=== PATIENT | male | born 1955 | race Caucasian/White ===

== ENCOUNTER 2016-11-08 23:14 | Emergency (ER) | payer BC ==
--- NOTE | ~2016-11-08 | CT16 ---
[facility] A Service of [facility] RADIOLOGY TEXT RESULTS PATIENT: VIDYA LUCERO LOCATION: [facility] : 51 UNIT #: [id number] AGE: [address]: Michael Manzanares MD SEX: M ORDER DR: [id number] [facility] [address] [place], [place] [address] [id number] E MR#: [id number] Acc #: [id number] NAME: VIDYA LUCERO : 1955 SEX: M STUDY DATE/TIME: 11/09/2016 0:01 UNIT: [facility] ROOM: STUDY DESCRIPTION: CT Angio Chest for PE Attending Physician: Michael Manzanares M.D. Ordering Physician: Michael Manzanares M.D. Primary Care Physician: Juanita Portillo M.D. MEDICAL IMAGING REPORT This report is preliminary unless electronic signature is present EXAM CTA chest with contrast PE protocol, 11/09/2016 HISTORY 61-year-old male with chest pain and shortness of air for 3 days. COMPARISON None TECHNIQUE Helical scan performed through the chest following the timed bolus administration of IV contrast per PE protocol. Coronal 3-D MIP reconstructions. Sagittal reformatted images. This CT exam was performed with one or more of the following radiation dose reduction techniques: automatic exposure control, adjustment of mA and/or kV according to patient size, and iterative reconstruction. FINDINGS There is adequate opacification of the pulmonary arteries with no filling defects noted. Thoracic aorta normal in course and caliber without dissection. Heart size normal. No pericardial effusion. Coronary artery calcifications. There is bibasilar atelectasis/infiltrate as well as minimal ground-glass infiltrate in the right upper lobe and left upper lobe. The findings may represent multifocal pneumonia in the appropriate clinical setting. Followup to resolution recommended. No pleural effusion or pneumothorax. Incidental scanning through the upper abdomen demonstrates multiple left renal cysts. No acute bony abnormality. IMPRESSION [facility] A Service of [facility] RADIOLOGY TEXT RESULTS PATIENT: VIDYA LUCERO LOCATION: [facility] : 51 UNIT #: [id number] AGE: [address]: Michael Manzanares MD SEX: M ORDER DR: 1. Negative for pulmonary emboli. 2. Negative for thoracic aortic aneurysm/dissection. 3. Bibasilar atelectasis/infiltrate with patchy ground-glass infiltrates in the left upper lobe and right upper lobe. The findings may represent multifocal pneumonia in the appropriate clinical setting. Followup to resolution is recommended. Dictated by... Joel Hartman M.D. THIS IS AN ELECTRONICALLY VERIFIED REPORT Joel Hartman M.D. at 11/09/2016 11:27 PM MALINA/taryn TD: 11/09/2016 13:10 JOB #: [id number] MEDICAL IMAGING REPORT Page 1 of 1 COPY
--- NOTE | ~2016-11-08 | CR63 ---
[facility] A Service of [facility] RADIOLOGY TEXT RESULTS PATIENT: VIDYA LUCERO LOCATION: [facility] : 51 UNIT #: [id number] AGE: [address]: Michael Manzanares MD SEX: M ORDER DR: [id number] [facility] [address] [place], [place] [address] [id number] E MR#: [id number] Acc #: [id number] NAME: VIDYA LUCERO : 1955 SEX: M STUDY DATE/TIME: 11/08/2016 20:16 UNIT: [facility] ROOM: STUDY DESCRIPTION: CR Chest 2 View Attending Physician: Michael Manzanares M.D. Ordering Physician: Angella Ogden M.D. Primary Care Physician: Juanita Portillo M.D. MEDICAL IMAGING REPORT This report is preliminary unless electronic signature is present EXAM PA and lateral chest HISTORY Cough and shortness of air for 2 days. FINDINGS 2 views of the chest demonstrate that the cardiac size is near the upper limits of normal, accentuated by low lung volumes. Pulmonary vascularity is normal. Mildly tortuous descending thoracic aorta. Mild bibasilar linear atelectasis or scarring. IMPRESSION No acute findings. No active disease. Borderline cardiac enlargement. Dictated by... Brian Jeffries M.D. THIS IS AN ELECTRONICALLY VERIFIED REPORT Brian Jeffries M.D. at 11/09/2016 1:31 PM DFL/sorin TD: 11/09/2016 10:36 JOB #: [id number] MEDICAL IMAGING REPORT Page 1 of 1 COPY
--- NOTE | ~2016-11-08 | EKG ---
PATIENT: VIDYA LUCERO UNIT #: [id number] Ventricular Rate: 66 BPM Atrial Rate: 66 BPM P-R Interval: 142 ms QRS Duration: 94 ms Q-T Interval: 420 ms QTC Calculation(Bezet): 440 ms P Nelson: 13 degrees Calculated R Nelson: 43 degrees Calculated T Nelson: 115 degrees Diagnosis Line: Normal sinus rhythm Diagnosis Line: Anterolateral infarct (cited on or before Diagnosis Line: 13-OCT-2013) Diagnosis Line: Abnormal ECG Diagnosis Line: When compared with ECG of 18-SEP-2016 11:41, Diagnosis Line: No significant change was found Diagnosis Line: Confirmed by CHARMAINE SCHRADER MD ([id number]) on 11/12/2016 Diagnosis Line: 10:30:29 PM INTERPRETING MD: MACRINA VALDEZ
[2016-11-08 20:02] LABS: BASOPHIL# 0.1 X10e3 (0-0.3); BASOPHIL% 0.6 % (0-2.5); EOSINOPHIL% 0.3 % (0.0-7.0); HEMATOCRIT 47.3 % (38.0-50.0); HEMOGLOBIN 15.2 gm/dL (13.0-16.0); LYMPHOCYTE# 1.4 X10e3 (1.0-3.5); LYMPHOCYTE% 9.4 % (17.0-45.0); MEAN CELL VOLUME 91.9 FL (83-96); MEAN CORPUSCULAR HEMOGLOBIN 29.6 PG (28-34); MEAN CORPUSCULAR HGB CONC 32.2 g/dL (30-36); MEAN PLATELET VOLUME 8.7 FL (6.5-11.5); MONOCYTE# 1.3 X10e3 (0-1.0); MONOCYTE% 8.9 % (3.0-12.0); NEUTROPHIL# 12.2 X10e3 (1.5-7.1); NEUTROPHIL% 80.8 % (40-75); PLATELET COUNT 285 X10e3 (140-420); RED BLOOD COUNT 5.14 X10e (3.90-5.60); RED CELL DISTRIBUTION WIDTH 14.2 % (11.0-15.5)
[2016-11-08 20:06] LABS: DIFF IND NO
[2016-11-08 20:08] LABS: INFLUENZA A NEG (NEG); INFLUENZA B NEG (NEG)
[2016-11-08 20:20] LABS: ALBUMIN SERUM 3.8 g/dL (3.5-5.0); BILIRUBIN, DIRECT 0.2 mg/dL (0.0-0.2); BILIRUBIN,INDIRECT 0.9 mg/dL (0.0-0.9); BILIRUBIN,TOTAL 1.1 mg/dL (0.2-2.0); BUN/CREATININE RATIO 15.55; CALCIUM SERUM 8.9 mg/dL (8.4-10.2); CREATININE SERUM 0.9 mg/dL (0.6-1.4); GLOM FILT RATE Estimated 90.6 mL/min (>60); POTASSIUM 4.4 mmol/L (3.5-5.1); PROTEIN TOTAL SERUM 7.6 g/dL (6.0-8.3)
[~2016-11-08 23:14] MED LIST: ASPIRIN PO; BAYER ASPIRIN325 M1 PO; COUMADIN; LIPITOR40 MG PO; LISINOPRIL10 MG PO; METOPROLOL TAR25 MG PO; TIROSINT25 MCG PO
[2016-11-08 23:47] LABS: POC - CKMB 1.2 ng/mL (0.0-7.9); POC - TROPONIN <0.05 ng/mL (<=0.05)
== END 2016-11-09 02:52 | disposition home or self-care (01) ==
LOC: CED 23:14
PROVIDERS: Emergency Medicine; Student in an Organized Health Care Education/Training Program
DX: J40 Bronchitis, not specified as acute or chronic (principal)
CPT/HCPCS: 36415; 71020; 71275; 80048; 80076; 82553; 84484; 85025; 87804; 93005; 94640; 96365; 99284; J1956; Q9967